=== PATIENT | male | born 1950 | race Caucasian/White ===

== ENCOUNTER 2021-07-22 10:07 | Emergency (ER) | payer MEDICARE, OTHER ==
[~2021-07-22] VITALS: Ht 190.5 cm; Wt 79.4 kg
[2021-07-22 10:12] VITALS: BP 158/76
--- NOTE | 2021-07-22 10:20 | NUR ---
PT BIBA AND TAKEN TO BED 9
--- NOTE | 2021-07-22 10:26 | NUR ---
71Y MALE BIBA FROM [facility] C/O LOWER BACK PAIN X 1 WEEK. PT STATED THE PAIN HAS PROGRESSIVELY GOTTEN WORSE TO THE POIN THE ISN'T ABLE TO AMBULATE NOW. PT IS NORMALLY AMBULATORY WITH CANE. PT DENIES ANY TRAUMA TO HIS LOWER BACK. DENIES ANY PAIN RADIAITNG DOWN HIS LEGS AND STATED IS LOCALIZED IN HIS LOWRE BACK. PT DENIES CHEST PAIN, SOB, FEVER/CHILLS, N/V. PT IS CURRENTLY AOX4. SKIN DRY AND INTACT AND PATIENT PLACED INTO GOWN PMH: KIDNEY FAILURE, STROKE, IBS, ENCEPHALOPATHY, EPILEPSY, HTN, 2 BACK SURGERY ALLERGIES: PENICILLINS
--- NOTE | 2021-07-22 10:36 | NUR ---
DR. LEE BEDSIDE EVALUATING PT
[2021-07-22] MEDS ORDERED: GABA300C PO (10:40)
[2021-07-22] MEDS ORDERED: METO25TE2 PO (10:40)
[2021-07-22] MEDS ORDERED: AMLO10TA89 PO (10:40)
[2021-07-22] MEDS ORDERED: LIDOCAINE 5% 1 EA PATCH TP STA (10:42)
[2021-07-22] MEDS ORDERED: NAPROXEN 500 MG TAB PO SCH (10:45)
[2021-07-22] MEDS ORDERED: ONDANSETRON 4 MG ODT PO ONE (10:45)
[2021-07-22] MEDS ORDERED: BACLOFEN 10 MG TAB PO SCH (10:45)
[2021-07-22] MEDS ORDERED: MORPHINE SULFATE 4 MG/ML SYR IM ONE (10:45)
[2021-07-22] MEDS ORDERED: ACET-5629 PO (12:01)
[2021-07-22] MEDS ORDERED: BACL10TA4 PO (12:01)
[2021-07-22] MEDS ORDERED: LID5T TP (12:01)
--- NOTE | 2021-07-22 12:18 | NUR ---
PT STATED PAIN RELIEF AND AMBULATED WITH CANE WITH NO DISCOMFORT
--- NOTE | 2021-07-22 12:42 | NUR ---
Vital Signs within normal limits. Respirations even and unlabored.
[2021-07-22 12:47] VITALS: BP 166/72
--- NOTE | 2021-07-22 12:48 | NUR ---
Patient discharged with v/s stable. Written and verbal after care instructions given and explained. Patient alert, oriented and verbalized understanding of instructions. AMBULATORY WITH CANE. All questions addressed prior to discharge. ID band removed. Patient advised to follow up with PMD. Rx of BACLOFEN, OXYCODONE/ACEAMINOPHEN, LIDOCAINE PATCH given. Patient educated on indication of medication including possible reaction and side effects. Opportunity to ask questions provided and answered.
== END 2021-07-22 12:47 | disposition home or self-care (01) ==
LOC: MED 10:07
DX: M54.50 Low back pain, unspecified (principal); G89.29 Other chronic pain; I10 Essential (primary) hypertension; F17.200 Nicotine dependence, unspecified, uncomplicated; Z71.6 Tobacco abuse counseling; Z88.0 Allergy status to penicillin; Z79.899 Other long term (current) drug therapy; Z86.73 Personal history of transient ischemic attack (TIA), and cerebral infarction without residual deficits; Z98.890 Other specified postprocedural states
CPT/HCPCS: 96372; 99284; J2270; Q0162

== ENCOUNTER 2021-09-25 14:11 | Emergency (ER) | payer MEDICARE, OTHER ==
[~2021-09-25] VITALS: Ht 190.5 cm; Wt 79.0 kg
[~2021-09-25 14:11] MED LIST: ACET-5629 PO; BACL10TA4 PO; LID5T TP
--- NOTE | 2021-09-25 14:11 | NUR ---
PT BIB [facility] TO ER BED 10
[2021-09-25 14:22] VITALS: BP 181/89
[2021-09-25] MEDS ORDERED: MORPHINE SULFATE 4 MG/ML SYR IVP ONE (14:50)
--- NOTE | 2021-09-25 15:00 | NUR ---
71/M AUDREY FROM [facility] WITH C/O LLQ PAIN X2 DAYS. PATIENT REPORTS BEING SEEN FOR SAME SYMPTOMS LAST WEEK AT [place] AND BEING D/C HOME WITH PAIN MEDICATIONS. STATES HE WAS TOLD HE MAY BE CONSTIPATED BUT PATIENT STATES "I DONT THINK THATS WHATS CAUSING THE PAIN." PATIENT REPORTS LAST BM WAS 3 DAYS AGO, DENIES N/V/D, FEVERS OR CHILLS.
[2021-09-25 15:08] LABS: APPEARANCE,URINE CLEAR (CLEAR); BILIRUBIN,URINE NEGATIVE (NEGATIVE); BLOOD, URINE TRACE-I (NEGATIVE); COLOR,URINE YELLOW (YELLOW); LEUKOCYTE ESTERASE ,URINE NEGATIVE (NEGATIVE); NITRITE, URINE NEGATIVE (NEGATIVE); UGLUCOSE NEGATIVE (NEGATIVE)
[2021-09-25 15:21] LABS: RBC,URINE 0-5 /HPF (0-5); WBC,URINE NONE SEEN /HPF (0-5)
[2021-09-25 15:32] LABS: BASOPHILS # (AUTO) 0.1 K/uL (0.00-0.22); EOSINOPHILS # (AUTO) 0.1 K/uL (0-0.4); EOSINOPHILS % (AUTO) 1.6 % (0.0-4.0); HEMOGLOBIN 10.7 g/dL (12.0-18.0); LYMPHOCYTES # (AUTO) 1.5 K/uL (2.0-11.5); LYMPHOCYTES % (AUTO) 25.7 % (20.5-51.1); MEAN CORPUSCULAR HEMOGLOBIN 31 pg (27-31); MEAN CORPUSCULAR HGB CONC 34 g/dL (33-37); MEAN CORPUSCULAR VOLUME 91.1 fL (80-94); MONOCYTES # (AUTO) 0.4 K/uL (0.8-1.0); MONOCYTES % (AUTO) 7.3 % (1.7-9.3); NEUTROPHILS # (AUTO) 3.8 K/uL (1.8-7.7); NEUTROPHILS % (AUTO) 64.4 % (42.2-75.2); PLATELET COUNT (AUTO) 331 K/uL (140-450); RED BLOOD CELL COUNT(AUTO) 3.51 MIL/uL (4.20-6.10); RED CELL DISTRIBUTION WIDTH 16.3 % (11.6-13.7); WHITE BLOOD COUNT (AUTO) 5.9 K/uL (4.8-10.8)
[2021-09-25 15:57] LABS: ALBUMIN 3.2 g/dL (3.4-5.0); ANION GAP 12.3 (8-16); ASPARTATE AMINOTRANSFERASE 13 U/L (15-37); CARBON DIOXIDE 26.1 mmol/L (21-32); CHLORIDE 105 mmol/L (98-107); CREATININE 2.1 mg/dL (0.6-1.3); GLUCOSE 81 mg/dL (74-106); LIPASE 80 U/L (73-393); POTASSIUM 4.4 mmol/L (3.5-5.1); SODIUM SERUM 139 mmol/L (136-145); TOTAL BILIRUBIN 0.5 mg/dL (0.0-1.0); UREA NITROGEN, BLOOD 34 mg/dL (7-18)
[2021-09-25] MEDS ORDERED: NACL 0.9% 1,000 ML IV SCH (17:10)
--- NOTE | 2021-09-25 17:35 | NUR ---
PATIENT TAKEN TO CT VIA [facility]
--- NOTE | 2021-09-25 17:45 | NUR ---
PT RETURNED FROM CT
--- NOTE | 2021-09-25 18:20 | NUR ---
PT GIVEN URINAL
[2021-09-25] MEDS ORDERED: MINERAL OIL 135 ML ENEM RC ONE (18:25)
--- NOTE | 2021-09-25 19:05 | NUR ---
PTS BP 193/96, DR. MONTES MADE AWARE.
--- NOTE | 2021-09-25 19:20 | NUR ---
Pt report given to LENA CALLAHAN. Transfer of care at this time.
[2021-09-25] MEDS ORDERED: BISA-218 RC (20:10)
[2021-09-25] MEDS ORDERED: POLY17PD72 PO (20:10)
[2021-09-25] MEDS ORDERED: hydrALAZINE 20 MG/ML VIAL IVP ONE (21:30)
[2021-09-25 22:40] VITALS: BP 143/69
--- NOTE | 2021-09-25 22:45 | NUR ---
[facility] TRANSPORT AT BEDSIDE
--- NOTE | 2021-09-25 22:52 | NUR ---
PT TAKEN BY [facility] TRANSPORT TO [facility]
== END 2021-09-25 22:52 ==
LOC: MED 14:11
DX: K59.00 Constipation, unspecified (principal); I10 Essential (primary) hypertension; Z86.73 Personal history of transient ischemic attack (TIA), and cerebral infarction without residual deficits; Z87.448 Personal history of other diseases of urinary system; Z88.0 Allergy status to penicillin
CPT/HCPCS: 36415; 74177; 80053; 81001; 83690; 85025; 96361; 96374; 96375; 99285; J0360; J2270; Q9967; J7030